=== PATIENT | male | born 1990 | race Caucasian/White ===

== ENCOUNTER → 2021-11-03 13:38 | Outpatient (BNVA) | payer BC, MEDICAID, SELFPAY | PROVIDERS: Visit Provider Registered Nurse Neonatal Intensive Care | DX: M79.672 Pain in left foot (principal) | CPT/HCPCS: 73630 ==

== ENCOUNTER 2024-01-12 18:02 | Emergency (ER) | payer SELFPAY ==
[2024-01-12 18:04] VITALS: BP 130/80; PULSE 78; RESP 16; TEMP 36.2; O2SAT 99; BMI 30.5
--- NOTE | 2024-01-12 18:04 | XRR_ITS ---
PROCEDURE INFORMATION: Exam: XR Left Ankle Exam date and time: 01/12/2024 6:17 PM Age: 33 years old Clinical indication: Pain; Ankle; Left; Prior surgery; Surgery date: 6+ months; Surgery type: Fracture repair; Additional info: Pain and swelling, twisted TECHNIQUE: Imaging protocol: Radiologic exam of the left ankle. Views: 3 or more views. COMPARISON: CR XR foot LT min 3V* [id number] 11/03/2021 1:44 PM FINDINGS: Bones/joints: No acute fracture or dislocation. Healed 2nd and 3rd metatarsal fractures. Stable postsurgical changes of the distal tibia and midfoot with grossly intact hardware. Soft tissues: Unremarkable. XR/XR ankle LT min 3V* [id number] IMPRESSION: No acute bony findings.
--- NOTE | 2024-01-12 18:16 | ED_ITS ---
HPI - Extremity Problem General: Chief complaint: Extremity Injury, Lower Stated complaint: left ankle pain Time Seen by Provider: 01/12/24 18:03 History of Present Illness: 33-year-old man who presents emergency r oom with ankle pain by ambulance from [facility]. He had trauma and surgery a few years back. This morning he says he woke up and when he stood up he kind of twisted it and since then has had pain and swelling. He took some ibuprofen that did not help. Related Data Home Medications Medication Instructions Recorded Confirmed ibuprofen 200 mg-diphenhydramine cap PO DAILY 11/03/21 11/03/21 HCl 25 mg capsule (Ibuprofen PM) Previous Rx's Medication Instructions Recorded diclofenac sodium 50 mg 50 mg PO BID PRN pain #14 tabs 01/12/24 tablet,delayed release Allergies Allergy/AdvReac Type Severity Reaction Status Date / Time No Known Allergies Allergy Verified 09/04/21 09:18 Review of Systems Narrative: Constitutional symptoms: Negative except as documented in HPI. Skin symptoms: Negative except as documented in HPI. Eye symptoms: Negative except as documented in HPI. ENMT symptoms: Negative except as documented in HPI. Respiratory symptoms: Negative except as documented in HPI. Cardiovascular symptoms: Negative except as documented in HPI. Gastrointestinal symptoms: Negative except as documented in HPI. Genitourinary symptoms: Negative except as documented in HPI. Musculoskeletal symptoms: Negative except as documented in HPI. Neurologic symptoms: Negative except as documented in HPI. Psychiatric symptoms: Negative except as documented in HPI. Endocrine symptoms: Negative except as documented in HPI. [facility] / [facility] ED PFSH: Medical History (Updated 01/12/24 @ 18:44 by Gayathri Perez MD) Other ankle sprain and strain Physical Exam Narrative: EXAM NARRATIVE: General: Alert, no acute distress. Skin: warm and dry Head: Normocephalic Neck: Trachea midline Eye: Extraocular movements are intact. Ears, nose, mouth and throat: Oral mucosa moist Respiratory: Respirations are non-labored Musculoskeletal: Normal ROM, some mild swelling in the left ankle, no obvious deformities, no redness or warmth. Neurovascularly intact. Neurological: Alert and oriented, No focal neurological deficit observed. Psychiatric: Cooperative, appropriate mood & affect. Course Vital Signs: Vital signs: Vital Signs Temperature 97.2 F L 01/12/24 18:04 Pulse Rate 72 01/12/24 18:24 Respiratory Rate 16 01/12/24 18:04 Blood Pressure 123/76 01/12/24 18:24 Pulse Oximetry 100 01/12/24 18:24 Oxygen Delivery Me thod Room Air 01/12/24 18:24 MDM - Extremity (Nontraumatic) Medical Decision Making X-ray of the ankle left: Hardware is in place. No obvious fractures or deformities. No dislocation. This was reviewed and interpreted by myself the emergency room physician. I also reviewed the radiology report. Assessment and plan: Ankle strain ? IM Toradol in the emergency room - Discharged home - Discussed plan with patient. Answered any questions. - Evaluation and treatment of this problem were appropriate in the emergency setting. XR interpretation done by ED provider, pending radiology final review Discharge Plan Discharge Patient Disposition: Home Clinical Impression: Ankle sprain and strain Condition: Stable Prescriptions: New diclofenac sodium 50 mg tablet,delayed release (DR/EC) 50 mg PO BID PRN (Reason: pain) Qty: 14 0RF No Action Ibuprofen PM 200-25 mg capsule PO DAILY Discharge Orders: Discharge ED (Routine); Ordered 01/12/24 Ordered By: Gayathri Perez Discharge Diet: Usual diet Discharge Activity: Increase activity as tolerated Patient Instructions: P.R.I.C.E. Treatment (ED), Pain Management Activity Restrictions/Additional Instructions: Thank you for choosing [facility] for your healthcare needs today. Please realize this is an emergency room and that we are providing you with a medical screening exam and this may not be complete and all inclusive of all the testing and or work up that you may need to determine your ailment or severity of your illness. You have been screened and evaluated and felt safe for discharge. Health conditions do change or evolve sometimes and as such it is important that you follow up with your Primary Doctor to be re checked, 3-5 days is a general good time frame for follow up. You are always welcome to return to the ED for re assessment if your symptoms are worsening or you have new concerns Coding Level of Care Code ED Membership Administrator for Lisa Smiley
[2024-01-12] MEDS: ketorolac 60 mg/2 mL INJ IM (18:21)
[2024-01-12 18:24] VITALS: BP 123/76; PULSE 72; O2SAT 100
[2024-01-12 19:11] VITALS: BP 114/75; PULSE 68; O2SAT 99
== END 2024-01-12 19:31 | disposition home or self-care (01) ==
PROVIDERS: Emergency Provider Emergency Medicine
DX: S93.402A Sprain of unspecified ligament of left ankle, initial encounter (principal); S96.912A Strain of unspecified muscle and tendon at ankle and foot level, left foot, initial encounter; X50.1XXA Overexertion from prolonged static or awkward postures, initial encounter; Y92.149 Unspecified place in prison as the place of occurrence of the external cause
CPT/HCPCS: 73610; 96372; 99284; J1885

== ENCOUNTER 2024-01-19 00:50 | Emergency (ER) | payer SELFPAY ==
[2024-01-19 00:52] VITALS: BP 128/78; RESP 16; TEMP 36.9; O2SAT 98; BMI 30.5
--- NOTE | 2024-01-19 01:21 | W.ED.EXTPRO ---
HPI - Extremity Problem General: Chief complaint: Extremity Problem,Nontraumatic Stated complaint: L ankle pain Time Seen by Provider: 01/19/24 00:52 History of Present Illness: Patient presents to the ER with complaints of left ankle pain. Patient was seen here approximately 2 days ago for the same symptoms had an x-ray and was sent home with diclofenac. Patient said it helped for about 24 hours but then it stopped helping. Patient denies any recent or new trauma since last visit. Patient is resting comfortably in bed with no obvious signs of distress. Related Data Home Medications Medication Instructions Recorded Confirmed ibuprofen 200 mg-diphenhydramine cap PO DAILY 11/03/21 11/03/21 HCl 25 mg capsule (Ibuprofen PM) Previous Rx's Medication Instructions Recorded meloxicam 7.5 mg tablet 7.5 mg PO .Twice daily #14 tabs 01/19/24 Allergies Allergy/AdvReac Type Severity Reaction Status Date / Time No Known Allergies Allergy Verified 09/04/21 09:18 Review of Systems General: Reports: 10 or more systems reviewed and unremarkable except in HPI and below PFSH ED PFSH: Medical History Other ankle sprain and strain Physical Exam Const: COMMON NORMALS: no acute distress, average body habitus, patient oriented x3, no limitations, healthy appearing, alert and well nourished Neck/C-Spine: COMMON NORMALS: no JVD Chest: COMMONS NORMALS: normal inspection of the chest and normal palpation of entire chest wall Resp: COMMON NORMALS: normal respiratory effort, No retractions, No use of accessory muscles and clear to auscultation bilaterally AUSCULTATION: clear to auscultation bilaterally Cardio: COMMON NORMALS: no JVD, regular rate, regular rhythm, S1 normal heart sound present, S2 normal heart sound present, No gallops present (Cardio), No clicks present (Cardio), No murmurs present (Cardio) and No rub (Cardio) RATE: regular rate RHYTHM: regular rhythm HEART SOUNDS: S1 normal heart sound present and S2 normal heart sound present GI: COMMON NORMALS: Normal to inspection, nondistended, normoactive bowel sounds present, Soft to palpation, non-tender, No hepatosplenomegaly present and no masses PALPATION: Yes Soft to palpation and Yes No hepatosplenomegaly present Extremity: NARRATIVE EXTREMITY EXAM: Mild swelling left ankle, no obvious crepitus deformity step-off. Neuro: COMMON NORMALS: patient oriented x3 SENSORIUM/ORIENTATION: Yes alert Course Vital Signs: Vital signs: Vital Signs Temperature 98.4 F 01/19/24 00:52 Respiratory Rate 16 01/19/24 00:52 Blood Pressure 128/78 01/19/24 00:52 Pulse Oximetry 98 01/19/24 00:52 MDM - Extremity (Nontraumatic) Medical Decision Making Patient already had an x-ray and was sent home on anti-inflammatory. Will give the patient a shot of Toradol, Depo-Medrol, change him over to meloxicam. Patient to follow-up with the doctor at the long term. Medical Records I reviewed the patient's medical records. Lab Data I reviewed the patient's lab results. No radiology studies performed this visit Discharge Plan Discharge Patient Disposition: Home Clinical Impression: Ankle pain Qualifiers: Chronicity: acute Laterality: left Qualified Code(s): M25.572 - Pain in left ankle and joints of left foot Condition: Stable Prescriptions: New meloxicam 7.5 mg tablet 7.5 mg PO .Twice daily Qty: 14 0RF Discontinued diclofenac sodium 50 mg tablet,delayed release (DR/EC) 50 mg PO BID PRN (Reason: pain) Qty: 14 0RF No Action Ibuprofen PM 200-25 mg capsule PO DAILY Discharge Orders: Discharge ED (Routine); Ordered 01/19/24 Ordered By: Reza Munoz Patient Instructions: Arthralgia (ED) Activity Restrictions/Additional Instructions: Please stop taking the anti-inflammatory you are given to last visit and start the meloxicam. Please remember to keep the foot elevated and use compression wrappings as needed. Please follow-up with the physician at the long term within the next 7 days for further evaluation and treatment. Coding Level of Care Code ED Sand Cutter Operator for Lisa Smiley
[2024-01-19 02:03] VITALS: BP 123/86; PULSE 69; RESP 16; O2SAT 97
[2024-01-19] MEDS: ketorolac 60 mg/2 mL INJ IM (02:04)
[2024-01-19] MEDS: methylPREDNISolone (DEPO) 80 MG/ML INJ 1 mL IM (02:04)
[2024-01-19 02:19] VITALS: BP 123/86; PULSE 64; RESP 16; O2SAT 98
== END 2024-01-19 02:35 | disposition home or self-care (01) ==
PROVIDERS: Emergency Provider Emergency Medicine
DX: M25.572 Pain in left ankle and joints of left foot (principal)
CPT/HCPCS: 96372; 99284; J1010; J1885